=== PATIENT | female | born 1980 | race Caucasian/White ===

== ENCOUNTER → 2017-02-18 | Outpatient (CLI) | payer MEDICAID ==
[~2017-02-18] MED LIST: PREN1CHW7 PO; ZANT150T2 PO
== END ==
LOC: HPND 09:03
PROVIDERS: ATTEND Obstetrics & Gynecology
DX: O09.523 Supervision of elderly multigravida, third trimester (principal); O99.213 Obesity complicating pregnancy, third trimester; O09.33 Supervision of pregnancy with insufficient antenatal care, third trimester; E66.9 Obesity, unspecified; Z68.32 Body mass index [BMI] 32.0-32.9, adult
CPT/HCPCS: 76811

== ENCOUNTER → 2017-03-11 | Emergency (ER) | payer MEDICAID ==
[2017-03-11 15:06] VITALS: BP 122/77; PULSE 98
[2017-03-11 15:15] VITALS: RESP 20; TEMP 98.8
--- NOTE | 2017-03-11 15:41 | PD ---
HPI Chief Complaint Dull, constant, lower abdominal pain Date Seen: Mar 11, 2017 Travel History International Travel<30 Days: No Contact w/Intl Traveler<30Days: No Known Affected Area: No History of Present Illness HPI Patient is a 37 y/o female at 36 weeks and 6 days gestation, presenting with lower abdominal pain. She states the pain began approximately 3 hours prior to arrival at the conclusion of her Wander-Mcarthur contractions which have been ongoing for weeks. She describes the pain as dull and constant in her lower abdomen; it is worsened by extending her body. She has never had this pain before. Due to the constant and new nature of her symptoms, she decided to seek help at the OB ED today. She received care beginning at 30 weeks as she had attributed her amenorrhea to menopause, but is now being followed closely due to AMA. Patient [facility] for an ultrasound. She states she tested GBS negative. She reports some nausea but denies vomiting. She denies vaginal bleeding and gush of fluid. She reports positive movement. Weeks Gestation: 37 Para: 3 : 4 History Past Medical History Medical History: Denies Significant Hx Past Surgical History Surgical History: No Previous Surgery Family History Family History: Negative Social History Alcohol Use: No Tobacco Use: Yes (1/2 PPD during ) Substance Abuse: No Allergies-Medications (Allergen,Severity, Reaction): Coded Allergies: No Known Allergies (Unverified , 03/04/17) Home Meds Active Scripts Vit W/ Ferric Phospha (Vitafol Gummies 3.33-0.333-34.8 mg) 1 Chw Chw, 3 TAB PO DAILY, #90 BOTTLE 11 Refills Prov:Sara Anderson 02/05/17 Ranitidine (Zantac) 150 Mg Tab, 150 MG PO BID for Reduce Stomach Acid, #60 TAB 7 Refills Prov:Sara Anderson 02/05/17 Discontinued Scripts Nitrofurantoin Monohydrate Macrocrystals (Macrobid) 100 Mg Capsule, 100 MG PO BID for Infection, #10 CAP 0 Refills Prov:Greg Aggarwal MD 02/27/17 Review of Systems Except as stated in HPI: all other systems reviewed are Neg Eyes: Pain (lower abdominal) Cardiovascular: No: Chest Pain or Discomfort Respiratory: No: Short of Breath Gastrointestinal: No: Nausea, Vomiting, Diarrhea Genitourinary: Frequency, No: Vaginal Bleeding Musculoskeletal: Cramping Neurologic: No: Headache Physical Exam Narrative GENERAL: Patient is sitting comfortably during exam in NAD. SKIN: Warm and dry. Numerous tattoos present. HEAD: Normocephalic and atraumatic. EYES: No scleral icterus. No injection or drainage. CARDIOVASCULAR: Regular rate and rhythm without murmurs, gallops, or rubs. RESPIRATORY: Breath sounds equal bilaterally. No accessory muscle use. ABDOMEN/GI: Abdomen soft, non-tender, bowel sounds present, no rebound, no guarding. Gravid to 37 weeks size GENITOURINARY: External Genitalia: intact and normal in appearance Cervix: Dilatation: Fingertip Effacement: 30% Station: -3 Presentation: Vertex Membranes: Intact Uterine Contractions: None FHT's: Category: 1 Baseline: 120 Reactive: Yes Variability: Moderate Decels: None EXTREMITIES: No cyanosis or edema. NEUROLOGICAL: Awake and alert. Motor and sensory grossly within normal limits. Normal speech. Data Data Vital Signs Reviewed: Yes Group B Strep: Negative MDM Plan Patient is a 37 y/o female at 36 weeks and 6 days gestation, presenting with lower abdominal pain. * IUP - Category: 1, Baseline: 120, reactive, Variability: Moderate, Decels: None. * UA - negative * Encourage oral hydration. * Monitor vital signs. * Monitor heart tracings. * Acetaminophen PRN for pain control. Diagnosis Diagnosis: Primary Impression: Lower abdominal pain Additional Impression: Late care Disposition: 01 DISCHARGE HOME Condition: Stable Shruthi Rosario MD R1 Mar 11, 2017 15:41
== END | disposition home or self-care (01) ==
LOC: HOBED 14:13
DX: O26.893 Other specified pregnancy related conditions, third trimester (principal); R10.30 Lower abdominal pain, unspecified; O09.523 Supervision of elderly multigravida, third trimester; O99.333 Smoking (tobacco) complicating pregnancy, third trimester; O09.33 Supervision of pregnancy with insufficient antenatal care, third trimester; Z3A.36 36 weeks gestation of pregnancy
CPT/HCPCS: 99284

== ENCOUNTER 2017-04-04 17:42 | Inpatient (IN) | payer MEDICAID ==
[~2017-04-04] VITALS: Ht 177.8 cm; Wt 108.0 kg
[2017-04-04] VITALS (13 sets, daily range): BP systolic 112–137; BP diastolic 53–94; PULSE 77–96; RESP 15–20; TEMP 97.9–98.5
[~2017-04-04 17:42] MED LIST changes: +DIPHTH/TETANUS/ACEL PERTUSSIS (BOOSTER) 0.5 ML VIAL/PFS IM ONE; +MEASLES, MUMPS, RUBELLA VACCINE 0.5 ML VIAL SQ ONE
[2017-04-04] MEDS ORDERED: LACTATED RINGER'S 1000 ML INJ 1,000 ML IV PRN (18:18)
--- NOTE | 2017-04-04 18:18 | HHI.HP ---
HPI Chief Complaint Contractions Date Seen: Apr 04, 2017 Time Seen: 18:15 Travel History International Travel<30 Days: No Contact w/Intl Traveler<30Days: No Known Affected Area: No History of Present Illness HPI Patient is 37-year-old white female at 40 weeks [facility] and presents planning of regular painful contractions. Denies bleeding or ruptured membranes. heart rate tracing is reactive and contractions are regular Weeks Gestation: 40 Para: 3 : 4 History Obstetric History Obstetric History 3 vaginal deliveries Social History Alcohol Use: No Tobacco Use: No Substance Abuse: No Allergies-Medications (Allergen,Severity, Reaction): Coded Allergies: No Known Allergies (Unverified , 03/17/17) Home Meds Active Scripts Vit W/ Ferric Phospha (Vitafol Gummies 3.33-0.333-34.8 mg) 1 Chw Chw, 3 TAB PO DAILY, #90 BOTTLE 11 Refills Prov:Sara Anderson 02/05/17 Ranitidine (Zantac) 150 Mg Tab, 150 MG PO BID for Reduce Stomach Acid, #60 TAB 7 Refills Prov:Sara Anderson 02/05/17 Review of Systems General / Constitutional: No: Fever, Weight Gain, Chills, Other Eyes: No: Diploplia, Blurred Vision, Visual changes, Pain, Photophobia HENT: No: Headaches, Vertigo, Lightheadedness Cardiovascular: No: Irregular Rhythm, Chest Pain or Discomfort, Palpitations, Tachycardia, Syncope, Varicosities, Edema, Cyanosis Respiratory: No: Cough, Short of Breath, Other Gastrointestinal: Abdominal Pain, No: Nausea, Vomiting, Diarrhea Genitourinary: No: Decreased Urinary Output, Oliguria Musculoskeletal: No: Limited ROM, Weakness, Cramping, Edema, Pain Skin: No Rash, No Itching, No Dryness, No Lumps, No Change in Pigmentation, No Change in Nails, No Alopecia, No Lesions Neurologic: No: Weakness, Dizziness, Syncope, Focal Abnormalities, Coordination Problem, Headache, Slurred Speech, Seizures Psychiatric: No: Depression, Suicidal Ideations, Homicidal Ideation Endocrine: No: Heat Intolerance, Cold Intolerance, Polydipsia, Polyuria, Other Physical Exam Narrative GENERAL: Well-nourished, well-developed patient. SKIN: Warm and dry. HEAD: Normocephalic and atraumatic. EYES: No scleral icterus. No injection or drainage. ENT: No nasal drainage noted. Mucous membranes pink. Airway patent. NECK: Supple, trachea midline. No JVD. CARDIOVASCULAR: Regular rate and rhythm without murmurs, gallops, or rubs. RESPIRATORY: Breath sounds equal bilaterally. No accessory muscle use. BREASTS: Bilateral exam showed no masses , no retractions, no nipple discharge. ABDOMEN/GI: Abdomen soft, non-tender, bowel sounds present, no rebound, no guarding Gravid to [40-] weeks size Fundal Height: [40-] GENITOURINARY: External Genitalia: intact and normal in appearance BUS glands: [-] Cervix: [-] Dilatation: [-7] Effacement: [100-] Station: [-1] Presentation: [vtx confirmed by US-] Membranes: [intact BBOW] Uterine Contractions: [-reg] FHT's: Category: [1-] Baseline: [-133] Reactive: [-R] Variability: [mod-] Decels: [none-] EXTREMITIES: No cyanosis or edema. BACK: Nontender without obvious deformity. No CVA tenderness. NEUROLOGICAL: Awake and alert. Motor and sensory grossly within normal limits. Five out of 5 muscle strength in all muscle groups. Normal speech. Caprini VTE Risk Assessment Caprini VTE Risk Assessment: No/Low Risk (score <= 1) Caprini Risk Assessment Model Point Value = 1 Point Value = 2 Point Value = 3 Point Value = 5 Age 41-60 Minor surgery BMI > 25 kg/m2 Swollen legs Varicose veins or History of unexplained or recurrent spontaneous Oral contraceptives or hormone replacement Sepsis (< 1 month) Serious lung disease, including pneumonia (< 1 month) Abnormal pulmonary function Acute myocardial infarction Congestive heart failure (< 1 month) History of inflammatory bowel disease Medical patient at bed rest Age 61-74 Arthroscopic surgery Major open surgery (> 45 min) Laparoscopic surgery (> 45 min) Malignancy Confined to bed (> 72 hours) Immobilizing plaster cast Central venous access Age >= 75 History of VTE Family history of VTE Factor V Leiden Prothrombin [id number] Lupus anticoagulant Anticardiolipin antibodies Elevated serum homocysteine Heparin-induced thrombocytopenia Other congenital or acquired thrombophilia Stroke (< 1 month) Elective arthroplasty Hip, pelvis, or leg fracture Acute spinal cord injury (< 1 month) Prophylaxis Regimen Total Risk Factor Score Risk Level Prophylaxis Regimen 0-1 Low Early ambulation 2 Moderate Order ONE of the following: *Sequential Compression Device (SCD) *Heparin 5000 units SQ BID 3-4 Higher Order ONE of the following medications: *Heparin 5000 units SQ TID *Enoxaparin/Lovenox 40 mg SQ daily (WT < 150 kg, CrCl > 30 mL/min) *Enoxaparin/Lovenox 30 mg SQ daily (WT < 150 kg, CrCl > 10-29 mL/min) *Enoxaparin/Lovenox 30 mg SQ BID (WT < 150 kg, CrCl > 30 mL/min) AND/OR *Sequential Compression Device (SCD) 5 or more Highest Order ONE of the following medications: *Heparin 5000 units SQ TID (Preferred with Epidurals) *Enoxaparin/Lovenox 40 mg SQ daily (WT < 150 kg, CrCl > 30 mL/min) *Enoxaparin/Lovenox 30 mg SQ daily (WT < 150 kg, CrCl > 10-29 mL/min) *Enoxaparin/Lovenox 30 mg SQ BID (WT < 150 kg, CrCl > 30 mL/min) AND *Sequential Compression Device (SCD) Data Data Group B Strep: Negative Assessment/Plan Assessment and Plan Patient is 37-year-old white female at 40 weeks presents in active labor cervix 7 cm/100/-1/vertex confirmed by ultrasound. The denies bleeding or leakage of fluid. heart rate tracing is reactive contractions noted. Impressions active labor at term Plan is admit for labor management. Anticipate vaginal delivery Junior Chapman II, MD Apr 04, 2017 18:18
[2017-04-04] MEDS ORDERED: LIDOCAINE HCL 1% 50 ML VIAL INFIL PRN (18:30)
[2017-04-04] MEDS ORDERED: CITRIC ACID-SODIUM CITRATE LIQ 30 ML UDC PO SCH (18:30)
[2017-04-04] MEDS ORDERED: SODIUM CHLORID 0.9% 500 ML INJ 500 ML IV PRN (18:30)
[2017-04-04] MEDS ORDERED: OXYTOCIN 30 UNITS-500ML PREMIX 500 ML IV ONE (18:30)
[2017-04-04] MEDS ORDERED: LIDOCAINE HCL 1% 50 ML VIAL I-DERMAL PRN (18:30)
[2017-04-04] MEDS ORDERED: MINERAL OIL 10 ML VIAL TOPICAL PRN (18:30)
[2017-04-04] MEDS ORDERED: SODIUM CHLOR 0.9% 1000 ML INJ 1,000 ML IV PRN (18:38)
[2017-04-04] MEDS: LACTATED RINGER'S 1000 ML INJ 1,000 ML IV SCH (18:39)
[2017-04-04 18:55] LABS: AUTOMATED NEUTROPHIL # 8.4 TH/MM3 (1.8-7.7); BASOPHIL % 0.3 % (0.0-2.0); EOSINOPHIL % 0.4 % (0.0-4.0); HEMATOCRIT 35.7 % (35.0-46.0); HEMOGLOBIN 12.5 GM/DL (11.6-15.3); LYMPH % 15.1 % (9.0-44.0); LYMPHOCYTE # 1.6 TH/MM3 (1.0-4.8); MEAN CELL VOLUME 83.5 FL (80.0-100.0); MEAN CORPUSCULAR HEMOGLOBIN 29.3 PG (27.0-34.0); MEAN CORPUSCULAR HGB CONC 35.1 % (32.0-36.0); MEAN PLATELET VOLUME 11.2 FL (7.0-11.0); MONO % 6.4 % (0.0-8.0); MONOCYTE # 0.7 TH/MM3 (0-0.9); NEUT % 77.8 % (16.0-70.0); PLATELET COUNT 171 TH/MM3 (150-450); RED BLOOD COUNT 4.28 MIL/MM3 (4.00-5.30); RED CELL DISTRIBUTION WIDTH 13.2 % (11.6-17.2); WHITE BLOOD COUNT 10.8 TH/MM3 (4.0-11.0)
[2017-04-04 19:22] LABS: BILIRUBIN, URINE NEG (NEG); BLOOD, URINE SMALL (NEG); GLUCOSE,URINE NEG (NEG); KETONE, URINE NEG (NEG); MUCUS URINE FEW /lpf (OCC); NITRITE,URINE NEG (NEG); PH, URINE 6.5 (5.0-8.5); SQUAMOUS EPITHELIAL CELL URINE 10 /hpf (0-5); URINE COLOR YELLOW (YELLW/STRAW); URINE LEUKOCYTE ESTERASE LARGE (NEG)
[2017-04-04] MEDS ORDERED: OXYTOCIN 10 UNIT/ML AMP ONE (19:31)
--- NOTE | 2017-04-04 19:36 | PD.OB.DELI ---
Weeks gestation: 40 Gest age assessed date: Apr 04, 2017 Gest age assessed time: 18:18 Pt started active labor?: Yes Active labor start date: Apr 04, 2017 Active labor start time: 14:00 Medical induction of labor?: No Artificial rupture of membrane: Yes Artificial ROM date: Apr 04, 2017 Artifical ROM time: 19:25 Anesthesia: None Episiotomy: None Vaginal Delivery: Normal Presentation: Occiput anterior Nuchal Cord: None Delayed cord clamping (45 sec): Yes Infant: Female Delivery date: Apr 04, 2017 Delivery time: 19:26 One Minute : 8 Five Minute : 9 Weight: 3105 gm Placenta: Spontaneous delivery Laceration: No lacerations, Perineal laceration, 1 deg Repair: Chromic interrupted Estimated blood loss: 100 cc Additional Information light meconium fluid noted at AROM Junior Chapman II, MD Apr 04, 2017 19:36
[2017-04-04] MEDS ORDERED: WITCH HAZEL 50%/GLYCERIN 12.5% 40 PAD JAR TOPICAL PRN (19:45)
[2017-04-04] MEDS ORDERED: OXYTOCIN 30 UNITS-500ML PREMIX 500 ML IV SCH (19:45)
[2017-04-04] MEDS ORDERED: DOCUSATE SODIUM 50 MG/SENNA 8.6 MG TAB PO PRN (19:45)
[2017-04-04] MEDS ORDERED: ALUMINUM/MAGNESIUM/SIMETH 30 ML CUP PO PRN (19:45)
[2017-04-04] MEDS ORDERED: ACETAMINOPHEN 325 MG TAB PO PRN (19:45)
[2017-04-04] MEDS ORDERED: ZOLPIDEM TARTRATE 5 MG TAB PO PRN (19:45)
[2017-04-04] MEDS ORDERED: ONDANSETRON ODT 4 MG TAB PO PRN (19:45)
[2017-04-04] MEDS ORDERED: BENZOCAINE 20% TOPICAL SPRAY 60 ML CAN TOPICAL PRN (19:45)
[2017-04-04] MEDS ORDERED: SODIUM CHLORIDE 0.9% FLUSH 10 ML FLUSH IV FLUSH PRN (19:45)
[2017-04-04] MEDS ORDERED: oxyCODONE/ACETAMINOPHEN 5 MG/325 MG TAB PO PRN (19:45)
[2017-04-04] MEDS: IBUPROFEN 800 MG TAB PO PRN (20:40)
[2017-04-05] MEDS: IBUPROFEN 800 MG TAB PO PRN ×2 (05:02→15:22)
--- NOTE | 2017-04-05 07:45 | HHI.OB ---
Subjective Post Day: 1 Remarks doing well no problems , bleeding decreased , minimal pain Objective Vitals/I&O Vital Signs Date Time Temp Pulse Resp B/P (MAP) Pulse Ox O2 Delivery O2 Flow Rate FiO2 04/04/17 22:50 97.9 89 20 137/79 (98) 04/04/17 20:35 17 04/04/17 20:30 77 128/76 (93) 04/04/17 20:25 17 04/04/17 20:15 84 115/71 (86) 04/04/17 20:02 18 04/04/17 20:00 80 121/74 (90) 04/04/17 19:49 15 04/04/17 19:45 78 113/94 (100) 04/04/17 19:45 18 04/04/17 19:45 98.0 04/04/17 19:32 89 112/53 (72) 04/04/17 19:00 98.0 17 04/04/17 18:45 98.5 16 04/04/17 18:43 96 126/79 (95) Objective Remarks GENERAL: Well-nourished, well-developed patient. CARDIOVASCULAR: Regular rate and rhythm without murmurs, gallops, or rubs. RESPIRATORY: Breath sounds equal bilaterally. No accessory muscle use. ABDOMEN/GI: Abdomen soft, non-tender. Fundus: Firm, non-tender at umbilicus. GENITOURINARY: Light to moderate bleeding. EXTREMITIES: No cyanosis or edema, non-tender, without signs of DVT. Medications and IVs Current Medications Medications (Trade) Dose Ordered Sig/[facility] Route Start Time Stop Time Status Last Admin Lactated Ringer's 1,000 ml @ 125 mls/hr Q8H IV 04/04/17 18:18 04/04/17 18:39 Lactated Ringer's 1,000 ml @ 3,000 mls/hr Q20M PRN IV 04/04/17 18:18 Sodium Chloride 500 ml @ 1,000 mls/hr ONCE PRN IV 04/04/17 18:30 18 18:29 Sodium Chloride 1,000 ml @ 100 mls/hr Q10H PRN IV 04/04/17 18:38 (Xylocaine 1% Inj (50 ml)) 0.1 ml UNSCH X1 PRN I-DERMAL 04/04/17 18:30 04/07/17 18:29 (Bicitra Liq) 30 ml SILK OPENER PO 04/04/17 18:30 04/08/17 18:29 (fentaNYL INJ) 50 mcg Q1H PRN IV PUSH 04/04/17 18:30 (fentaNYL INJ) 100 mcg Q1H PRN IV PUSH 04/04/17 18:30 04/04/17 18:39 (Xylocaine 1% Inj (50 ml)) 10 ml UNSCH X1 PRN INFIL 04/04/17 18:30 04/06/17 18:29 (Muri-Lube Oil) 10 ml UNSCH PRN TOPICAL 04/04/17 18:30 (NS Flush) 2 ml BID IV FLUSH 04/04/17 21:00 (NS Flush) 2 ml UNSCH PRN IV FLUSH 04/04/17 19:45 (Tylenol) 650 mg Q4H PRN PO 04/04/17 19:45 (Motrin) 800 mg Q8H PRN PO 04/04/17 19:45 04/05/17 05:02 (Percocet 5-325 Mg) 1 tab Q4H PRN PO 04/04/17 19:45 (Americaine 20% Top Spr) 1 spray Q4H PRN TOPICAL 04/04/17 19:45 04/04/17 21:17 (Tucks Pads) 1 applic QID PRN TOPICAL 04/04/17 19:45 (Katie-Colace) 2 tab Q12H PRN PO 04/04/17 19:45 (Ambien) 5 mg HS PRN PO 04/04/17 19:45 (Mag-Al Plus Susp Liq) 15 ml Q8H PRN PO 04/04/17 19:45 (Zofran Odt) 4 mg Q6H PRN PO 04/04/17 19:45 Assessment/Plan Assessment and Plan Patient is 37-year-old white female at 40 weeks presented in active labor cervix 7 cm and delivered rapidly after AROM. . Impression - normal course Plan to D/C in am Junior Chapman II, MD Apr 05, 2017 07:45
[2017-04-05 08:00] VITALS: BP 121/80; PULSE 69; RESP 16; TEMP 98; O2SAT 98
[2017-04-05] MEDS: SODIUM CHLORIDE 0.9% FLUSH 10 ML FLUSH IV FLUSH SCH (09:00)
[2017-04-05] MEDS: LACTATED RINGER'S 1000 ML INJ 1,000 ML IV SCH ×2 (10:18→18:18)
[2017-04-05 20:00] VITALS: BP 125/80; PULSE 82; RESP 18; TEMP 98.1
[2017-04-06] MEDS: IBUPROFEN 800 MG TAB PO PRN ×2 (00:09→08:16)
[2017-04-06] MEDS ORDERED: IBUP1TAB7 PO (08:36)
[2017-04-06] MEDS ORDERED: ACET325T15 PO (08:36)
--- NOTE | 2017-04-06 08:37 | HHI.DCPOC ---
Discharge Care Plan Diagnosis: (1) Normal vaginal delivery Report Symptoms to Your Doctor -Temperature above 100.5 degrees -Redness, of incision or excessive or foul smelling drainage -Unusual pain or calf pain -Increased vaginal bleeding -Painful or difficulty urinating -Feelings of extreme sadness or anxiety after 2 weeks Goals to Promote Your Health * To prevent worsening of your condition and complications * To maintain your health at the optimal level Directions to Meet Your Goals Take your medications as prescribed Follow your dietary instruction Follow activity as directed Ensure plenty of rest for recovery Drink fluids for hydration Keep your appointments as scheduled Take your immunizations and boosters as scheduled If your symptoms worsen call your PCP, if no PCP go to Urgent Care Center or Emergency Room Smoking is Dangerous to Your Health. Avoid second hand smoke Call the 24-hour crisis hotline for domestic abuse at Elizabeth Lemus MD Apr 06, 2017 08:37
--- NOTE | 2017-04-06 08:40 | HHI.OB ---
Subjective Post Day: 2 Remarks day # 2. AFVSS overnight. Decreased lochia. Denies dysuria. No breast tenderness. She is feeding the baby via breast. Appetite good. No nausea or vomiting. Ambulating well. Denies calf pain or shortness of breath. Otherwise, she is doing well this morning and has no other concerns. Objective Vitals/I&O Vital Signs Date Time Temp Pulse Resp B/P (MAP) Pulse Ox O2 Delivery O2 Flow Rate FiO2 04/05/17 20:00 98.1 82 18 125/80 (95) Objective Remarks GENERAL: Well-nourished, well-developed female. CARDIOVASCULAR: Regular rate and rhythm without murmurs, gallops, or rubs. RESPIRATORY: Breath sounds equal bilaterally. No accessory muscle use. ABDOMEN/GI: Abdomen soft, non-tender. Fundus: Firm, non-tender at umbilicus. GENITOURINARY: Light to moderate bleeding. EXTREMITIES: No cyanosis or edema, non-tender, without signs of DVT. Medications and IVs Current Medications Medications (Trade) Dose Ordered Sig/Osmar Route Start Time Stop Time Status Last Admin Lactated Ringer's 1,000 ml @ 125 mls/hr Q8H IV 04/04/17 18:18 04/04/17 18:39 Lactated Ringer's 1,000 ml @ 3,000 mls/hr Q20M PRN IV 04/04/17 18:18 Sodium Chloride 1,000 ml @ 100 mls/hr Q10H PRN IV 04/04/17 18:38 (Xylocaine 1% Inj (50 ml)) 0.1 ml UNSCH X1 PRN I-DERMAL 04/04/17 18:30 04/07/17 18:29 (Bicitra Liq) 30 ml TECHNICAL SERVICES COORDINATOR PO 04/04/17 18:30 04/08/17 18:29 (fentaNYL INJ) 50 mcg Q1H PRN IV PUSH 04/04/17 18:30 (fentaNYL INJ) 100 mcg Q1H PRN IV PUSH 04/04/17 18:30 04/04/17 18:39 (Xylocaine 1% Inj (50 ml)) 10 ml UNSCH X1 PRN INFIL 04/04/17 18:30 04/06/17 18:29 (Muri-Lube Oil) 10 ml UNSCH PRN TOPICAL 04/04/17 18:30 (NS Flush) 2 ml BID IV FLUSH 04/04/17 21:00 (NS Flush) 2 ml UNSCH PRN IV FLUSH 04/04/17 19:45 (Tylenol) 650 mg Q4H PRN PO 04/04/17 19:45 (Motrin) 800 mg Q8H PRN PO 04/04/17 19:45 04/06/17 08:16 (Percocet 5-325 Mg) 1 tab Q4H PRN PO 04/04/17 19:45 (Americaine 20% Top Spr) 1 spray Q4H PRN TOPICAL 04/04/17 19:45 04/04/17 21:17 (Tucks Pads) 1 applic QID PRN TOPICAL 04/04/17 19:45 (Katie-Colace) 2 tab Q12H PRN PO 04/04/17 19:45 (Ambien) 5 mg HS PRN PO 04/04/17 19:45 (Mag-Al Plus Susp Liq) 15 ml Q8H PRN PO 04/04/17 19:45 04/06/17 00:09 (Zofran Odt) 4 mg Q6H PRN PO 04/04/17 19:45 Assessment/Plan Assessment and Plan 37 y/o female who is PPD# 2 s/p . -Continue routine care. -Tylenol and Motrin PRN pain. -Encouraged OOB. Advised pelvic rest for 6 wks. -Re: ctrl, she would like BTL and will discuss with CFW. Nothing in vagina for 6 weeks, counseled. -Anticipate discharge today LEONCIO Lemus,Elizabeth Olivares MD Apr 06, 2017 08:40
[2017-04-06] MEDS: SODIUM CHLORIDE 0.9% FLUSH 10 ML FLUSH IV FLUSH SCH (09:00)
[2017-04-06 10:10] VITALS: BP 109/72; PULSE 94; RESP 16; TEMP 97.8
[2017-04-06] MEDS: LACTATED RINGER'S 1000 ML INJ 1,000 ML IV SCH (10:18)
== END 2017-04-06 12:52 | disposition home or self-care (01) | DRG 775 ==
LOC: HOBED 17:42 → H2EB 18:18 → H1EA 21:11
PROVIDERS: ADMIT Obstetrics & Gynecology Maternal & Fetal Medicine; ATTEND Obstetrics & Gynecology Maternal & Fetal Medicine
PROC: 10E0XZZ Delivery of Products of Conception, External Approach (ICD-10-PCS; principal; 2017-04-04)
PROC: 10907ZC Drainage of Amniotic Fluid, Therapeutic from Products of Conception, Via Natural or Artificial Opening (ICD-10-PCS; 2017-04-04)
DX: O77.0 Labor and delivery complicated by meconium in amniotic fluid (principal); Z37.0 Single live birth; Z3A.40 40 weeks gestation of pregnancy
CPT/HCPCS: 59025; 76815; 80307; 81001; 85025; 86900; 86901; 87077; 87086; 87186; J2590; J3010; J7120